=== PATIENT | female | born 1980 | race Hispanic/Latino ===

== ENCOUNTER 2018-04-29 12:49 | Inpatient (IN) | payer MEDICAID ==
[2018-04-29 12:49] VITALS: BMI 31.6
[2018-04-29 13:39] LABS: SQUAMOUS EPITHIAL 4 /hpf (0-5); URINE BACTERIA MOD (<OCC); URINE BILIRUBIN NEGATIVE (NEGATIVE); URINE BLOOD NEGATIVE (NEGATIVE); URINE CLARITY Clear (Clear); URINE COLOR Colorless (YELLOW); URINE GLUCOSE (UA) NORMAL (Normal); URINE LEUKOCYTE ESTERASE NEG Leu/uL (Negative); URINE PROTEIN NEGATIVE (NEGATIVE); URINE UROBILINOGEN NORMAL mg/dL (0.2-1.0)
[2018-04-29 13:44] LABS: BASO % 0.8 % (0.0-2.0); NEUT # 1.7 K/uL (1.8-7.0); RED CELL DISTRIBUTION WIDTH 13.3 % (11.5-14.5); WHITE BLOOD COUNT 4.3 K/uL (4.8-10.8)
[2018-04-29 13:47] LABS: BARBITURATES, UR NEGATIVE (NEGATIVE); BENZODIAZEPINES, UR NEGATIVE (NEGATIVE); OPIATES, UR NEGATIVE (NEGATIVE); PHENCYCLIDINE, UR NEGATIVE (NEGATIVE)
[2018-04-29 13:52] LABS: HEMOGLOBIN 12.8 g/dL (11.0-16.0); LYMPH # 2.1 K/uL (1.0-4.3); LYMPH % 48.2 % (20.0-40.0); MEAN CORPUSCULAR HEMOGLOBIN 29.1 pg (27.0-31.0); MEAN PLATELET VOLUME 8.8 fL (7.2-11.7); MONO # 0.4 K/uL (0.0-0.8); MONO % 10.3 % (0.0-10.0); NEUT % 39.7 % (50.0-75.0); NRBC % 0.1 % (0.0-2.0); RBC 4.4 Mil/uL (3.80-5.20)
[2018-04-29 13:53] LABS: MEAN CELL VOLUME 85.6 fL (81.0-99.0)
[2018-04-29 13:59] LABS: ALBUMIN 4.1 g/dL (3.5-5.0); ALT/SGPT 25 U/L (9-52); AST/SGOT 30 U/L (14-36); BLOOD UREA NITROGEN 12 mg/dL (7-17); CALCIUM 8.1 mg/dl (8.6-10.4); GFR NON-AFRICAN AMERICAN > 60
--- NOTE | 2018-04-29 14:44 | C.PDOC ---
History Of Present Illness 37 y/o female presents to the ER for detox from Oxycodone. Patient states that she last used Oxycodone yesterday. Patient denies having suicidal ideation, homicidal ideation, and active physical complaints. Of note, patient is prescr eened. Time Seen by Provider: 04/29/18 13:10 Chief Complaint (Nursing): Substance Abuse History Per: Patient History/Exam Limitations: no limitations Past Medical History Reviewed: Historical Data, Nursing Documentation, Vital Signs Vital Signs: Last Vital Signs Temp 98.0 F 04/29/18 13:05 Pulse 77 04/29/18 13:05 Resp 18 04/29/18 13:05 BP 118/84 04/29/18 13:05 Pulse Ox 100 04/29/18 13:05 - Medical History PMH: Depression, Migraine Denies: Diabetes, Hepatitis, HIV, HTN, Chronic Kidney Disease, Seizures, Sexually Transmitted Disease Other Surgeries: Hx of surgeries - [facility] Procedures DETOXIFICATION SERVICES FOR SUBSTANCE ABUSE TREATMENT (10/17/15) GROUP PSYCHOTHERAPY (10/17/15) INJECT/INFUSE ELECTROLYT (05/31/12) INJECT/INFUSE NEC (06/13/13) NEBULIZER THERAPY (05/31/12) Family History: States: No Known Family Hx - Social History Hx Tobacco Use: Yes Hx Alcohol Use: No Hx Substance Use: Yes - Immunization History Hx Tetanus Toxoid Vaccination: No Hx Influenza Vaccination: No Hx Pneumococcal Vaccination: No Review Of Systems Except As Marked, All Systems Reviewed And Found Negative. Constitutional: Negative for: Fever, Chills Psych: Negative for: Suicidal ideation Physical Exam - Physical Exam Appears: No Acute Distress Skin: Normal Color, Warm, Dry Head: Atraumatic, Normacephalic Eye(s): bilateral: Normal Inspection Nose: Normal Oral Mucosa: Moist Neck: Supple Chest: Symmetrical Cardiovascular: Rhythm Regular Respiratory: Normal Breath Sounds, No Rales, No Rhonchi, No Wheezing Gastrointestinal/Abdominal: Soft, No Tenderness, No Guarding, No Rebound Neurological/Psych: Oriented x3, Normal Speech ED Course And Treatment - Laboratory Results Result Diagrams: 04/29/18 13:40 04/29/18 13:40 O2 Sat by Pulse Oximetry: 100 (RA) Pulse Ox Interpretation: Normal Medical Decision Making Medical Decision Making: Assessment: Substance Abuse Plan: --Labs --UA Updates: 14:14 CRISIS evaluated patient. Patient has been admitted for drug abuse under the service of . Disposition Discussed With Dr.: Avtar Torres Doctor Will See Patient In The: Hospital Counseled Patient/Family Regarding: Studies Performed, Diagnosis - Disposition Disposition: HOSPITALIZED Disposition Time: 14:44 Condition: FAIR - Clinical Impression Clinical Impression: Drug abuse - Scribe Statement The provider has reviewed the documentation as recorded by the Steph Quintanilla Provider Attestation: All medical record entries made by the Steph were at my direction and personally dictated by me. I have reviewed the chart and agree that the record accurately reflects my personal performance of the history, physical exam, medical decision making, and the department course for this patient. I have also personally directed, reviewed, and agree with the discharge instructions and disposition.
--- NOTE | 2018-04-29 15:02 | PCM.BM ---
<Amanuel Hidalgo - Last Filed: 04/30/18 17:30> Treatment Plan Problems - Problems identified on initial assessmt potential for opiate withdrawal Date Initiated: 04/29/18 Time Initiated: 19:00 Status: Active Treatment assets and liabiliti Patient Assests: cooperative, ADL independent, cognitively intact Patient Liabilities: substance abuse - Milieu Protocol Maintain good personal hygiene: daily Encourage regular showers, daily Remind patient to perform daily oral care, daily Assist patient to perform ADL's Conduct patient checks and document Observation sheet: Q15 minutes Maintain personal safety: every shift Educate patient to report safety concerns to staff, every shift Monitor environment for contraband/sharps Medication safety: Monitor for expected outcome, potential side effects: every shift, Assess barriers to learning: every shift, Assess readiness for medication education: every shift <Avtar Torres - Last Filed: 05/01/18 21:20> - Diagnosis (1) Opioid use disorder, severe, dependence Status: Acute Interventions: 05/01/18 21:19 * Assess 7x/week regarding severity of withdrawal * Educate regarding risks, benefits, side effects and alternatives of medications * Use Motivational Interviewing for abstinence * Use CBT for relapse prevention * Medication management for withdrawal symptoms * Encourage medication assisted treatment (2) Cocaine use disorder, moderate, dependence Status: Acute Interventions: 05/01/18 21:19 * Assess 7x/week regarding severity of withdrawal * Educate regarding risks, benefits, side effects and alternatives of medications * Use Motivational Interviewing for abstinence * Use CBT for relapse prevention * Medication management for withdrawal symptoms * Encourage medication assisted treatment (3) Anxiety disorder, unspecified Status: Acute Interventions: 05/01/18 21:20 * Assess/adjust medications daily and /or as needed * See patient on an individual basis 7x/week to assess level of manic behaviors and stability * Discuss risks, benefits, side effects and alternatives of medications
[2018-04-29] MEDS: Multiple Vitamins Tab PO SCH (15:57)
[2018-04-30] MEDS: Multiple Vitamins Tab PO SCH (09:48)
[2018-04-30] MEDS: Aluminum Hydroxide/Magnesium Hydroxide Susp (30 mL) PO PRN (19:02)
--- NOTE | 2018-04-30 21:51 | PCM.PSYCH ---
Initial Psychiatric Evaluation - Initial Psychiatric Evaluation Type of Admission: Voluntary Legal Status: Capacity Chief Complaint (in patient's own words): I need help for my substance use. History of Present Illness and Precipitating Events: Patient is a 37 years old, single, unemployed, female with history of anxiety disorder was admitted due to withdrawing from oxycodone and cocaine. Opioid: Patient started using oxycodone 7 years ago, for last 1 year started using constantly, was using 1 tablet of oxycodone 30 mg. Last use was Sunday. Methadone: Started using methadone 1 year ago, was using daily 10-20 mg daily. Last used yesterday. Patient was buying methadone from street. Cocaine: Patient also uses cocaine but was guarded about further detail about cocaine. Patient was born in [place], has 1 year of college. Not working for last 4 years. She is on public assistance. She is single and has 2 children who lives with the patient. Her height is 5 feet 5 inches and weight is 210 pounds. Current Medications: Active Medications Generic Name Dose Route Start Last Admin Trade Name Freq PRN Reason Stop Dose Admin Al Hydrox/Mg Hydrox/Simethicone 30 ml 04/29/18 15:44 04/30/18 19:02 Maalox 30 Ml PO 30 ml TID PRN Administration Indigestion / Heartburn Clonidine HCl 0.1 mg 04/29/18 15:41 04/30/18 21:13 Catapres PO 0.1 mg Q4H PRN Administration Symptoms of alcohol withdrawl Dicyclomine HCl 10 mg 04/29/18 15:44 Bentyl PO Q6 PRN Muscle spasm Docusate Sodium 100 mg 04/30/18 18:00 04/30/18 17:14 Colace PO 100 mg BID TERESA Administration Escitalopram Oxalate 10 mg 04/30/18 12:30 04/30/18 13:06 Lexapro PO 10 mg DAILY TERESA Administration Folic Acid 1 mg 04/29/18 15:45 04/30/18 09:48 Folic Acid PO 1 mg DAILY TERESA Administration Gabapentin 300 mg 04/29/18 18:00 04/30/18 17:14 Neurontin PO 300 mg TID TERESA Administration Hydroxyzine HCl 25 mg 04/29/18 15:46 04/30/18 21:13 Atarax PO 25 mg Q6 PRN Administration Anxiety Ibuprofen 600 mg 04/29/18 15:44 Motrin Tab PO Q6 PRN Pain, moderate (4-7) Loperamide HCl 2 mg 04/29/18 15:47 Imodium PO Q8 PRN Diarrhea Multivitamins 1 tab 04/29/18 15:45 04/30/18 09:48 Hexavitamin PO 1 tab DAILY TERESA Administration Ondansetron HCl 4 mg 04/29/18 15:48 Zofran Tab PO Q8 PRN Nausea/Vomiting Thiamine HCl 100 mg 04/29/18 15:45 04/30/18 09:48 Vitamin B1 Tab PO 100 mg DAILY TERESA Administration Trazodone HCl 50 mg 04/29/18 22:00 04/30/18 21:13 Desyrel PO 50 mg HS PRN Administration Insomnia Past Psychiatric History - Past Psychiatric History Previous Treatment History: Inpatient Prior Professional Help: 2 previous detox At [facility]: [facility] History of Abuse: None reported History of ETOH/Drug Use: See HPI History of Family Illness: Reported her father is alcoholic and mother has cocaine use. Pertinent Medical Hx (Current Medical&Sleep Prob, Allergies): Allergies Allergy/AdvReac Type Severity Reaction Status Date / Time No Known Allergies Allergy Unverified 12/02/17 13:01 Escitalopram [Lexapro] 10 mg PO DAILY 07/14/17 RomiPLOStim [Nplate] 10 mcg SC QWK 12/02/17 ITP, on Nplate weekly. Review of Systems - Psychiatric Psychiatric: As Per HPI, Anxiety, Other Mental Status Examination - Personal Presentation Personal Presentation: Looks stated age - Affect Affect: Other (Appropriate) - Motor Activity Motor Activity: Calm - Reliability in Providing Information Reliability in Providing Information: Fair - Speech Speech: Organized - Mood Mood: Anxious - Formal Thought Process Formal Thought Process: No Impairment - Hallucinations/Delusions Hallucinations: Other (Appropriate) Delusions: Other - Obsessions/Compulsions Obsessions: None Compulsions: None - Cognitive Functions Orientation: Person, Place, Situation, Time Sensorium: Alert Attention/Concentration: Attentive Abstract Thinking: Edmond Estimate of Intelligence: Average Judgement: Intact, as evidence by: Insight regarding need for hospitalization Memory: Recent intact, as evidence by: Ability to recall events of the day, Remote intact, as evidenced by: Ability to recall historical events - Risk Risk: Withdrawal, Diminished functioning - Strength & Assets Inventory Strength & Assets Inventory: Cooperative - Limitations Limitations: Living alone DSM 5 DX - DSM 5 DSM 5 Diagnosis: Opioid withdrawal Opioid use disorder severe. Cocaine use disorder moderate. Anxiety disorder unspecified - Recommended/Plan of Treatment Treatment Recommendations and Plan of Treatment: Patient education. Supportive therapy. CBT for relapse prevention. [place] for abstinence. We will start methadone taper for opioid withdrawal symptoms. Other PRN medications. [facility] after discharge from the hospital. Projected ELOS: 4-5 days - Smoking Cessation Smoking Cessation Initiated: No Reason for not providing: Patient does not smoke cigarettes.
[2018-05-01] MEDS: Multiple Vitamins Tab PO SCH (09:35)
[2018-05-01] MEDS ORDERED: Magnesium Hydroxide Susp 30 ml UD PO ONE (16:49)
[2018-05-01] MEDS ORDERED: Bisacodyl 5mg EC Tab PO ONE (19:30)
--- NOTE | 2018-05-01 21:59 | PCM.PYCHPN ---
Psychiatric Progress Note - Psychiatric Progress Note Patient seen today, length of contact: 15 minutes Patient Chief Complaint: I am feeling little better. Problems Identified/Issues Discussed: Patient seen, chart reviewed, case discussed with the staff. Issues related to illness and treatment were discussed with the patient and staff. Reported compliant with treatment with no adverse effect. Calm and cooperative. Reported feeling little better. Still having withdrawal symptoms including shaking, sweating, body aches and headache, but less than before. Awake, alert and oriented x3. Mood reported as anxious. Affect appropriate. Memory intact. Aftercare discussed with the patient. Denied any delusions, auditory or visual hallucinations, suicidal ideations or homicidal ideations at the time of evaluation. Medical Problems: ITP Diagnostic Results: Reviewed DSM 5 Symptoms Update: Reviewed Medication Change: No Medical Record Reviewed: Yes Mental Status Examination - Cognitive Function Orientation: Person, Place, Situation, Time Memory: Intact - Mood Mood: Anxious - Affect Affect: Other (Appropriate) - Speech Speech: Appropriate - Formal Thought Process Formal Thought Process: No Impairment Psychotic Thoughts and Behaviors: None - Suicidal Ideation Suicidal Ideation: No - Homicidal Ideation Homicidal Ideation: No Goal/Treatment Plan - Goal/Treatment Plan Need for Continued Stay: Remain at risks for inpatient hospitalization, Discharge may exacerbated symptoms, Severe functional impairment Progress Toward Problem(s) and Goals/Treatment Plan: Patient education. Supportive therapy. CBT for relapse prevention. [place] for abstinence. Continue respiratory treatment as before. [facility] after discharge from the hospital. Estimated Date of D/C: 05/03/18 - Smoking Cessation Smoking Cessation Initiated: No Reason for not providing: Patient does not smoke cigarettes.
[2018-05-02] MEDS: Aluminum Hydroxide/Magnesium Hydroxide Susp (30 mL) PO PRN (08:33)
[2018-05-02] MEDS: Multiple Vitamins Tab PO SCH (09:25)
--- NOTE | 2018-05-02 16:18 | PCM.PYCHPN ---
Psychiatric Progress Note - Psychiatric Progress Note Patient seen today, length of contact: 15 minutes Patient Chief Complaint: I am feeling better. Problems Identified/Issues Discussed: Patient seen, chart reviewed, case discussed with the staff. Issues related to illness and treatment were discussed with the patient and staff. Reported compliant with treatment with no adverse effect. Calm and cooperative. Reported feeling better. Awake, alert and oriented x3. Mood reported as anxious. Affect appropriate. Memory intact. Aftercare discussed with the patient. Denied any delusions, auditory or visual hallucinations, suicidal ideations or homicidal ideations at the time of evaluation. Medical Problems: ITP Diagnostic Results: Reviewed DSM 5 Symptoms Update: Improving with treatment. Medication Change: No Medical Record Reviewed: Yes Mental Status Examination - Cognitive Function Orientation: Person, Place, Situation, Time Memory: Intact Attention: WNL Concentration: WNL Association: WN Fund of Knowledge: [facility] Decription of patient's judgement and insights: Fair - Mood Mood: Anxious (Much less than before) - Affect Affect: Other (Appropriate) - Speech Speech: Appropriate - Formal Thought Process Formal Thought Process: No Impairment Psychotic Thoughts and Behaviors: None - Suicidal Ideation Suicidal Ideation: No - Homicidal Ideation Homicidal Ideation: No Goal/Treatment Plan - Goal/Treatment Plan Need for Continued Stay: Remain at risks for inpatient hospitalization, Discharge may exacerbated symptoms, Severe functional impairment Progress Toward Problem(s) and Goals/Treatment Plan: Patient education. Supportive therapy. CBT for relapse prevention. [place] for abstinence. Continue respiratory treatment as before. [facility] after discharge from the hospital. Estimated Date of D/C: 05/03/18 - Smoking Cessation Smoking Cessation Initiated: No
[2018-05-03 06:24] VITALS: O2SAT 97
[2018-05-03] MEDS: Multiple Vitamins Tab PO SCH (09:05)
--- NOTE | 2018-05-03 09:54 | PCM.PYCHDC ---
Mental Status Examination - Mental Status Examination Orientation: Person, Place, Situation, Time Memory: Intact Mood: Neutral Affect: Other (Appropriate) Speech: Appropriate Attention: WNL Concentration: WNL Association: WNL Fund of Knowledge: WNL Formal Thought Process: No Impairment Description of patient's judgement and insight: Fair Psychotic Thoughts and Behaviors: None Suicidal Ideation: No Current Homicidal Ideation?: No Discharge Summary - Discharge Note Reason for Hospitalization: Opioid withdrawal Opioid use disorder severe Cocaine use disorder moderate Anxiety disorder unspecified Laboratory Data: Reviewed Consultations:: List each consultation separately and include: 1. Reason for request. 2. Findings. 3. Follow-up Summary of Hospital Course include:: 1. Description of specific treatment plan utilized for patients during their course of treatmen. 2. Summarize the time- course for resolution of acute symptoms and/or regressed behaviors. 3. Describe issues identified and worked on during hospitalization. 4. Describe medication utilized. 5. Describe medical problems identified and treated. 6. Reassessment of suicide risk Summary of Hospital Course: Patient is a 37 years old, single, unemployed, female with history of anxiety disorder was admitted due to withdrawing from oxycodone and cocaine. Opioid: Patient started using oxycodone 7 years ago, for last 1 year started using constantly, was using 1 tablet of oxycodone 30 mg. Last use was Sunday. Methadone: Started using methadone 1 year ago, was using daily 10-20 mg daily. Last used yesterday. Patient was buying methadone from street. Cocaine: Patient also uses cocaine but was guarded about further detail about cocaine. Patient was born in [place], has 1 year of college. Not working for last 4 years. She is on public assistance. She is single and has 2 children who lives with the patient. Her height is 5 feet 5 inches and weight is 210 pounds. During her stay in the hospital patient was started on methadone taper for opioid withdrawal symptoms. Patient was also started on other when necessary medications. Patient was attending groups and other activities on the unit. With above treatment patient started feeling better, had no withdrawal symptoms. Today patient was stable and ready for discharge from the hospital. At the time of evaluation and discharge, patient was awake, alert, oriented 3, had no delusions, no auditory or visual hallucinations, no suicidal ideations or homicidal ideations. Patient was discharged in a stable condition. - Diagnosis (1) Opioid use disorder, severe, dependence Status: Acute (2) Cocaine use disorder, moderate, dependence Status: Acute (3) Anxiety disorder, unspecified Status: Acute - Final Diagnosis (DSM 5) Condition upon Discharge: FAIR Disposition: HOME/ ROUTINE Follow-up Treatment Plan: [facility] after discharge from the hospital. Prescriptions/Medication Reconciliation: Escitalopram [Lexapro] 10 mg PO DAILY #30 tab Gabapentin [Neurontin] 300 mg PO TID #90 cap traZODone [Desyrel] 50 mg PO HS PRN #30 tab PRN Reason: Insomnia - Smoking Cessation Smoking Cessation Medication prescribed: No - Antipsychotic Medications Pt discharged on 2 or more routine antipsychotic medications: No
[2018-05-03 11:07] VITALS: BP 101/68; PULSE 72; RESP 18; TEMP 97.5
== END 2018-05-03 12:00 | disposition home or self-care (01) | DRG 744 ==
LOC: C.ER 12:49 → C.7D 14:43
PROC: HZ52ZZZ Individual Psychotherapy for Substance Abuse Treatment, Cognitive-Behavioral (ICD-10-PCS; principal; 2018-04-29)
PROC: HZ2ZZZZ Detoxification Services for Substance Abuse Treatment (ICD-10-PCS; 2018-04-29)
PROC: HZ59ZZZ Individual Psychotherapy for Substance Abuse Treatment, Supportive (ICD-10-PCS; 2018-04-29)
PROC: HZ56ZZZ Individual Psychotherapy for Substance Abuse Treatment, Psychoeducation (ICD-10-PCS; 2018-04-29)
PROC: HZ42ZZZ Group Counseling for Substance Abuse Treatment, Cognitive-Behavioral (ICD-10-PCS; 2018-04-29)
PROC: HZ46ZZZ Group Counseling for Substance Abuse Treatment, Psychoeducation (ICD-10-PCS; 2018-04-29)
PROC: GZHZZZZ Group Psychotherapy (ICD-10-PCS; 2018-04-29)
PROC: GZ58ZZZ Individual Psychotherapy, Cognitive-Behavioral (ICD-10-PCS; 2018-04-29)
PROC: GZ56ZZZ Individual Psychotherapy, Supportive (ICD-10-PCS; 2018-04-29)
DX: F11.23 Opioid dependence with withdrawal (principal); D69.3 Immune thrombocytopenic purpura; F14.20 Cocaine dependence, uncomplicated; F41.9 Anxiety disorder, unspecified; Z87.891 Personal history of nicotine dependence; Z81.3 Family history of other psychoactive substance abuse and dependence